=== PATIENT | male | born 1960 | race Caucasian/White ===

== ENCOUNTER 2022-01-25 10:30 | Outpatient (CLI) | payer OTHER, SELFPAY ==
--- NOTE | 2022-01-25 11:15 | CRLHL7_ITS ---
For Patients: As a result of the Century Cures Act, medical imaging exams and procedure reports are released immediately into your electronic medical record. You may view this report before your referring provider. If you have questions, please contact your health care provider. INDICATION : Right thyroid nodule. TECHNIQUE : Ultrasound-guided fine needle aspiration of thyroid nodule. Comparison : 01/11/2022 FINDINGS : PROCEDURE: After the informed consent and time-out, multiple fine needle aspirations were obtained from the thyroid nodule. Fine needle performed. 25 gauge needles were used. 1.9 cm TR 4 right thyroid lobe nodule, midportion. Lidocaine was used for local anesthesia. The preliminary cytology was adequate for interpretation. Real-time imaging was used for guidance and needle placement. Post imaging ultrasound demonstrates no immediate complication. IMPRESSION : Successful fine needle aspiration of thyroid nodule. Dictated by Ford Gross MD @ 01/25/2022 11:45:41 AM (Electronically Signed)
== END 2022-01-25 10:31 | disposition home or self-care (01) ==
PROVIDERS: PCP Family Medicine; Visit Provider Family Medicine
DX: E04.1 Nontoxic single thyroid nodule (principal)
CPT/HCPCS: 10005; 88173